=== PATIENT | female | born 1985 | race American Indian/Alaskan Native ===

== ENCOUNTER 2016-06-16 13:27 | Outpatient (CLI) | payer MEDICARE ==
[2016-06-16 14:14] LABS: Alanine Aminotransferase 17 units/L (7-56); Albumin 3.6 g/dL (3.9-5); Albumin/Globulin Ratio 1.1 %; Alkaline Phosphatase 113 units/L (35-129); Anion Gap 17 mmol/L; Bilirubin,Total 0.2 mg/dL (0.1-1.2); Blood Urea Nitrogen 5 mg/dL (7-17); Calcium 8.8 mg/dL (8.4-10.2); Carbon Dioxide 26 mmol/L (22-30); Chloride 101.3 mmol/L (98-107); Glucose 105 mg/dL (65-100); Potassium 3.8 mmol/L (3.6-5.0); Sodium 140 mmol/L (137-145)
== END 2016-06-16 13:28 | disposition home or self-care (01) ==
LOC: LAB 13:27
PROVIDERS: ATTEND Nurse Practitioner Psychiatric/Mental Health
DX: F25.9 Schizoaffective disorder, unspecified (principal); Z79.899 Other long term (current) drug therapy
CPT/HCPCS: 36415; 80053; 80178; 84443; 86592

== ENCOUNTER 2016-07-24 09:21 | Emergency (ER) | payer MEDICARE ==
[2016-07-24 09:38] VITALS: BP 104/68
[2016-07-24 10:38] LABS: Basophils % (Auto) 0.7 % (0.0-1.8); Eosinophils % (Auto) 2.2 % (0.0-4.3); Hematocrit 38.1 % (30.3-42.9); Hemoglobin 12.4 gm/dl (10.1-14.3); Mean Corpuscular HGB Conc 33 % (30-34); Mean Corpuscular Hemoglobin 28 pg (28-32); Mean Corpuscular Volume 87 fl (79-97); Platelet Count 206 K/mm3 (140-440); Red Blood Count 4.39 M/mm3 (3.65-5.03); White Blood Count 5.8 K/mm3 (4.5-11.0)
[2016-07-24 10:40] LABS: Anion Gap 14 mmol/L; BUN/Creatinine Ratio 11.25; Blood Urea Nitrogen 9 mg/dL (7-17); Calcium 9.2 mg/dL (8.4-10.2); Carbon Dioxide 27 mmol/L (22-30); Chloride 101.8 mmol/L (98-107); Glucose 85 mg/dL (65-100); Sodium 139 mmol/L (137-145)
--- NOTE | 2016-07-24 10:42 | Emergency Department Report ---
HPI - General Chief Complaint: Psych Time Seen by Provider: 07/24/16 09:53 - HPI HPI: This is a 31-year-old Afro[place]Citizen [place] female presents to the emergency department with a complaint of depression and suicidal ideations. The patient says she has a history of a psychiatric diagnosis that is "constantly changing" from depression to bipolar disorder to schizophrenia. She does have a history of visual hallucinations but none currently. The patient has been dealing with a lot of personal issues including divorce and separation from children and family but says that she has been "suffering for to long." She says that she has come to the "end of my life." She stated that she took her regular medications as morning but also took 2 extra trazodone. She also says that she would overdose in order to end her life. ED Past Medical Hx - Past Medical History Previous Medical History?: Yes Hx Psychiatric Treatment: Yes (bipolar) - Surgical History Past Surgical History?: Yes Additional Surgical History: , tubal ligation - Social History Smoking Status: Never Smoker Substance Use Type: None ED Review of Systems ROS: Stated complaint: SUICIDAL Other details as noted in HPI Comment: All other systems reviewed and negative Constitutional: denies: chills, fever Eyes: denies: eye pain, eye discharge, vision change ENT: denies: ear pain, throat pain Respiratory: denies: cough, shortness of breath, wheezing Cardiovascular: denies: chest pain, palpitations Gastrointestinal: denies: abdominal pain, nausea, diarrhea Genitourinary: denies: urgency, dysuria, discharge Musculoskeletal: denies: back pain, joint swelling, arthralgia Skin: denies: rash, lesions Neurological: denies: headache, weakness, paresthesias Psychiatric: depression, suicidal thoughts. denies: auditory hallucinations, homicidal thoughts Physical Exam - Physical Exam Vital Signs: Vital Signs 07/24/16 09:29 Temperature 98.3 F Pulse Rate 67 Respiratory 18 Rate Blood Pressure 104/68 O2 Sat by Pulse 100 Oximetry Physical Exam: GENERAL: The patient is well-developed well-nourished. HEENT: Normocephalic. Atraumatic. Extraocular motions are intact. Patient has moist mucous membranes. Pupils equal reactive to light bilaterally. No nystagmus. NECK: Supple. Trachea is midline. CHEST/LUNGS: Clear to auscultation. There is no respiratory distress noted. HEART/CARDIOVASCULAR: Regular. There is no tachycardia. There is no gallop rub or murmur. ABDOMEN: Abdomen is soft, nontender. Patient has normal bowel sounds. There is no abdominal distention. SKIN: There is no rash. There is no edema. There is no diaphoresis. NEURO: The patient is awake, alert, and oriented. The patient is cooperative. The patient has no focal neurologic deficits. The patient has normal speech and gait. MUSCULOSKELETAL: There is no tenderness or deformity. There is no limitation range of motion. There is no evidence of acute injury. ED Course Vital Signs 07/24/16 09:29 Temperature 98.3 F Pulse Rate 67 Respiratory 18 Rate Blood Pressure 104/68 O2 Sat by Pulse 100 Oximetry ED Medical Decision Making - Lab Data Result diagrams: 07/24/16 10:08 07/24/16 10:08 - Medical Decision Making 31-year-old female with history of depression, bipolar disorder who presents with some suicidal ideations with a plan to overdose. Vital signs stable throughout her ED course. The patient's labs are unremarkable. Patient appears medically cleared for psychiatric placement. She has been made a 1013 secondary to the suicidal ideations and the behavioral health counselor will be contacted to assist with placement. - Differential Diagnosis depression, bipolar disorder, schizoaffective, substance abuse Critical Care Time: No Critical care attestation.: If time is entered above; I have spent that time in minutes in the direct care of this critically ill patient, excluding procedure time. ED Disposition Clinical Impression: Suicidal ideations Depression Qualifiers: Depression Type: unspecified Qualified Code(s): F32.9 - Major depressive disorder, single episode, unspecified Disposition: DC/TX PSY HOSP/PSY UNIT Is pt being admited?: No Condition: Stable Referrals: PRIMARY CARE [Primary Care Provider] - 3-5 Days Time of Disposition: 11:30
[2016-07-24 10:58] LABS: Urine Drugs of Abuse Note Disclamer
[2016-07-24 11:25] LABS: Bilirubin,Urine NEG (Negative); Blood,Urine NEG (Negative); Ketones,Urine NEG (Negative); Leukocyte Esterase,Urine NEG (Negative); Mucus,Urine FEW /HPF; Nitrite,Urine NEG (Negative); Protein,Urine <15 mg/dL mg/dL (Negative); Urobilinogen,Urine < 2.0 mg/dL (<2.0); WBC,Urine < 1.0 /HPF (0.0-6.0)
--- NOTE | 2016-07-24 19:48 | Consultation ---
History of Present Illness - Reason for Consult Consult date: 07/24/16 Reason for consult: Psychiatry Follow-up Requesting physician: MARIANNA HOPKINS - Chief Complaint Chief complaint: "I have no reason to live" - History of Present Psychiatric Illness This is a 31-year-old Afro[place] female presents to the emergency department with a complaint of depression and suicidal ideations. Today patient is calm, cooperative with a circumstantial thought process. She stated that she get messages from the universe (Reference of Ideas) all the time. She stated that she do not want these messages to stop, "I need them." Currently these messages tell her to kill herself. Patient stated that her plan would be to overdose on pills. The patient stated that she woke up these morning and did not want to live anymore, so she decided to take extra Trazodone pills (2 or 3). She stated that she has taken rat poison in the past. Also, patient stated that she has cut herself in the past (wrist/suicide attempt). She denies HI's, VH's, being depressed or a poor appetite, but stated sleep disturbance. She denies recreation drug use or alcohol abuse. Patient stated that she has SI's and thoughts all the time. She feel that she have nothing to live for, because of her mental illness and not being able to see her kids (3). She stated that she takes [place], Haldol, and Trazodone currently. Medications and Allergies Allergies Allergy/AdvReac Type Severity Reaction Status Date / Time No Known Allergies Allergy Unverified 07/24/16 09:28 Past psychiatric history - Past Medical History Past Medical History: No medical history Past Surgical History: Other (, tubal Ligation) - past Psychiatric treatment and history Psych: Bipolar, Schizophrenia psychiatric treatment history: Patient states that she has been to multiple inpatient settings. Fam psy hx sister Bipolar. - Social History Social history: other ([employer] graduate, [employer] College, 3 kids, Current , Live with a friend) Mental Status Exam - Vital signs Last Vital Signs Temp 98.3 F 07/24/16 09:29 Pulse 67 07/24/16 09:29 Resp 18 07/24/16 14:10 BP 104/68 07/24/16 09:29 Pulse Ox 100 07/24/16 09:29 - Exam Narrative exam: ROS (+) delusional, (+) psychosis MSE: Appearance: calm, cooperative Behavior: good eye contact Speech: regular rate and tone Mood: "I have no mood" Affect: mood congruent Thought Process: circumstantial Thought Content: denies HI's and VH's, +SI, +AH Motor Activity: ambulatory Cognition: A/Ox3 Insight: fair Judgment: poor Results Result Diagrams: 07/24/16 10:08 07/24/16 10:08 Abnormal lab results 07/24/16 Range/Units 10:08 RDW 17.0 H (13.2-15.2) % All other labs normal. Assessment and Plan Assessment and plan: Impression: Unspecified Mood DO with Psychotic features. This is a 31-year-old Afro[place] female presents to the emergency department with a complaint of depression and suicidal ideations. Today patient is calm, cooperative with a circumstantial thought process. She stated that she get messages from the universe (Reference of Ideas) all the time. She stated that she do not want these messages to stop, "I need them." Currently these messages tell her to kill herself. Patient stated that her plan would be to overdose on pills. Patient denies HI's and VH's at this time. DD: R/O Bipolar DO, Schizophrenia, Schizoaffective DO Recommendation/Plan: Continue 1013 with placement to [facility].
== END 2016-07-24 18:40 ==
LOC: ED 09:21
DX: R45.851 Suicidal ideations (principal); F32.9 Major depressive disorder, single episode, unspecified; F31.9 Bipolar disorder, unspecified
CPT/HCPCS: 36415; 80048; 80307; 81001; 81025; 85025; 99285; G0480; 80320